=== PATIENT | female | born 1960 | race Caucasian/White ===

== ENCOUNTER 2019-12-17 15:09 | Outpatient (CLI) | payer MEDICARE, MEDICAID | END 2019-12-17 23:59 | disposition home or self-care (01) | LOC: CFH 15:09 | PROVIDERS: ATTEND Registered Nurse | DX: J90 Pleural effusion, not elsewhere classified (principal); J84.10 Pulmonary fibrosis, unspecified; J98.4 Other disorders of lung | CPT/HCPCS: 71250 ==